=== PATIENT | female | born 1950 | race Two or more races ===

== ENCOUNTER 2018-05-01 14:48 | Emergency (ER) | payer OTHER, MEDICAID ==
[~2018-05-01] VITALS: Ht 162.6 cm; Wt 57.6 kg
[2018-05-01 14:50] VITALS: BP 165/92
--- NOTE | 2018-05-01 15:22 | NUR ---
PT TO [facility]
== END 2018-05-01 16:17 | disposition home or self-care (01) ==
LOC: ER 14:49
DX: R51 Headache (principal)
CPT/HCPCS: 70450-TC; A4606; Z7610

== ENCOUNTER 2018-10-19 11:03 | Emergency (ER) | payer OTHER, MEDICAID ==
[~2018-10-19] VITALS: Ht 134.6 cm; Wt 55.8 kg
--- NOTE | 2018-10-19 11:12 | NUR ---
BIB SELF W C/O R WRIST AND R SHOULDER PAIN, S/P GLF, "I TRIPPED WHILE WALKING" TO ER BED 11 , HOOKED TO MONITOR, CHANGED TO GOWN, AWAITING MD BYERS
--- NOTE | 2018-10-19 11:17 | NUR ---
DR GAN AT BEDSIDE
--- NOTE | 2018-10-19 12:42 | NUR ---
Patient discharged to home in stable condition. Written and verbal after care instructions given. Patient verbalizes understanding of instruction.
[2018-10-19 12:52] VITALS: BP 164/84
== END 2018-10-19 12:53 | disposition home or self-care (01) ==
LOC: ER 11:07
DX: S52.611A Displaced fracture of right ulna styloid process, initial encounter for closed fracture (principal); S52.571A Other intraarticular fracture of lower end of right radius, initial encounter for closed fracture; W18.39XA Other fall on same level, initial encounter; Y93.89 Activity, other specified; Y92.89 Other specified places as the place of occurrence of the external cause; Y99.8 Other external cause status
CPT/HCPCS: 73030-TC; 73110

== ENCOUNTER 2021-07-28 15:37 | Emergency (ER) | payer OTHER ==
[~2021-07-28] VITALS: Ht 137.2 cm; Wt 56.7 kg
--- NOTE | 2021-07-28 15:37 | NUR ---
PT BIB SELF C/O HEADACHE X 3 DAY, TAKING OTC PAIN MEDS W/ NO RELIEF. PT IS AAOX4, NOT IN RESPIRATORY DISTRESS, HOOKED TO NURSE EXTERN, KEPT RESTED AND COMFORTABLE. WILL CONTINUE TO MONITOR.
--- NOTE | 2021-07-28 16:19 | NUR ---
PT SEEN AND EXAMINED BY .
[2021-07-28] MEDS ORDERED: ACETAMINOPHEN 325 MG TABLET PO ONE (16:30)
[2021-07-28] MEDS ORDERED: IV NS 0.9% 1,000 ML BAG IV ONE (16:30)
[2021-07-28] MEDS ORDERED: KETOROLAC TROMETHAMINE INJ 30 MG/ML VIAL IV ONE (16:30)
[2021-07-28] MEDS ORDERED: diphenhydrAMINE HCL 50 MG/ML VIAL IV ONE (16:30)
[2021-07-28] MEDS ORDERED: METOCLOPRAMIDE HCL 10 MG/2 ML VIAL IV ONE (16:30)
[2021-07-28] MEDS ORDERED: diphenhydrAMINE HCL 50 MG/ML VIAL ONE (16:36)
[2021-07-28] MEDS ORDERED: KETOROLAC TROMETHAMINE 15 MG/ML VIAL ONE (16:37)
[2021-07-28] MEDS ORDERED: ACETAMINOPHEN ES 500 MG TABLET ONE (16:37)
[2021-07-28] MEDS ORDERED: METOCLOPRAMIDE HCL 10 MG/2 ML VIAL ONE (16:37)
[2021-07-28] MEDS ORDERED: CLONIDINE HCL 0.1 MG TABLET ONE (16:49)
[2021-07-28] MEDS ORDERED: CLONIDINE HCL 0.1 MG TABLET PO ONE (17:00)
[2021-07-28] MEDS ORDERED: AMLODIPINE BESYLATE 5 MG TABLET PO ONE (17:00)
[2021-07-28] MEDS ORDERED: AMLO2.5T4 PO (17:07)
--- NOTE | 2021-07-28 17:11 | NUR ---
Patient discharged to home in stable condition. Written and verbal after care instructions given. Patient verbalizes understanding of instruction.
[2021-07-28 17:12] VITALS: BP 145/77
== END 2021-07-28 17:12 | disposition home or self-care (01) ==
LOC: ER 15:37
DX: M54.81 Occipital neuralgia (principal); R51.9 Headache, unspecified; I10 Essential (primary) hypertension; E78.00 Pure hypercholesterolemia, unspecified; Z79.899 Other long term (current) drug therapy
CPT/HCPCS: J1200; J1885; J2765; J7030

== ENCOUNTER 2022-04-09 16:50 | Emergency (ER) | payer OTHER ==
[~2022-04-09] VITALS: Ht 152.4 cm; Wt 54.4 kg
[~2022-04-09 16:50] MED LIST: AMLO2.5T4 PO
[2022-04-09 17:11] VITALS: BP 153/76
[2022-04-09] MEDS ORDERED: KETOROLAC TROMETHAMINE INJ 30 MG/ML VIAL IM ONE (17:30)
[2022-04-09] MEDS ORDERED: KETOROLAC TROMETHAMINE INJ 30 MG/ML VIAL ONE (17:49)
[2022-04-09] MEDS ORDERED: IBUP-1957 PO (18:16)
== END 2022-04-09 18:26 | disposition home or self-care (01) ==
LOC: ER 17:09
DX: M25.561 Pain in right knee (principal); E78.00 Pure hypercholesterolemia, unspecified; Z79.899 Other long term (current) drug therapy
CPT/HCPCS: 99283; 96372; 73564; J1885

== ENCOUNTER 2022-05-28 20:39 | Emergency (ER) | payer OTHER ==
[~2022-05-28] VITALS: Ht 152.4 cm; Wt 54.4 kg
[~2022-05-28 20:39] MED LIST changes: +IBUP-1957 PO
--- NOTE | 2022-05-28 22:11 | NUR ---
BIBS FOR C/O ABD PAIN AND DIARRHEA X TODAY. PT AWAKE AND ALERT X4 BREATHING EVEN AND UNLABORED.. DENIES N/V OR ABD PAIN. CHANGED INTO GOWN AND PLACED ON MONITOR AND V/S WNL.
[2022-05-28] MEDS ORDERED: DIPHENOXYLATE HCL/ATROP SULF 1 UDTAB TABLET ONE (22:19)
[2022-05-28] MEDS ORDERED: DICYCLOMINE HCL INJ 20 MG/2 ML AMPUL IM ONE ×2 (22:19→22:30)
[2022-05-28] MEDS ORDERED: ONDANSETRON HCL/PF 4 MG/2 ML VIAL ONE (22:19)
[2022-05-28] MEDS ORDERED: ONDANSETRON HCL/PF 4 MG/2 ML VIAL IVP ONE (22:30)
[2022-05-28] MEDS ORDERED: DIPHENOXYLATE HCL/ATROP SULF 1 UDTAB TABLET PO ONE (22:30)
[2022-05-28] MEDS ORDERED: IV NS 0.9% 1,000 ML BAG IV ONE (22:30)
--- NOTE | 2022-05-28 22:30 | NUR ---
20G ESTABLISHED AT [facility]. BLOOD DRAWN AND SENT TO LAB.
--- NOTE | 2022-05-28 22:31 | NUR ---
PT UNABLE TO PROVIDE URINE AT THIS TIME
[2022-05-28 23:17] LABS: BASOPHILS # (AUTO) 0.1 K/uL (0.0-0.2); BASOPHILS % (AUTO) 0.9 % (0.0-2.0); EOSINOPHILS % (AUTO) 2.6 % (0.0-6.0); HEMATOCRIT 37 % (33-45); HEMOGLOBIN 12.4 g/dL (11.5-14.8); LYMPHOCYTES # (AUTO) 1.7 K/uL (0.8-4.8); LYMPHOCYTES % (AUTO) 24.8 % (20.0-44.0); MEAN CORPUSCULAR HGB CONC 34 g/dl (31.0-36.0); MEAN CORPUSCULAR VOLUME 85 fL (82-100); MONOCYTES # (AUTO) 0.5 K/uL (0.1-1.30); MONOCYTES % (AUTO) 7.4 % (2.0-12.0); NEUTROPHILS # (AUTO) 4.4 K/uL (1.8-8.9); NEUTROPHILS % (AUTO) 64.3 % (43.0-81.0); PLATELET COUNT (AUTO) 250 K/uL (150-450); RED BLOOD CELL COUNT(AUTO) 4.37 MIL/uL (4.0-5.2); WHITE BLOOD COUNT (AUTO) 6.9 K/uL (4.3-11.0)
[2022-05-28 23:31] LABS: CALCIUM, SERUM 9.2 mg/dL (8.5-10.1); CARBON DIOXIDE 29 mmol/L (21-32); CHLORIDE 104 mmol/L (98-107); CREATININE 0.9 mg/dL (0.6-1.3); GLUCOSE 101 mg/dL (74-106); POTASSIUM 3.6 mmol/L (3.5-5.1); SODIUM SERUM 140 mmol/L (136-145); UREA NITROGEN, BLOOD 26 mg/dL (7-18)
[2022-05-28 23:37] LABS: ALANINE AMINOTRANSFERASE 31 U/L (12-78); ALBUMIN 3.9 g/dL (3.4-5.0); ALKALINE PHOSPHATASE 90 U/L (46-116); ASPARTATE AMINOTRANSFERASE 19 U/L (15-37); BILIRUBIN,DIRECT 0.2 mg/dL (0.0-0.2); BILIRUBIN,TOTAL 0.7 mg/dL (0.2-1.0); LIPASE 116 U/L (73-393); TOTAL PROTEIN, SERUM 7.7 g/dL (6.4-8.2)
--- NOTE | 2022-05-29 00:12 | NUR ---
Patient discharged to home in stable condition. Written and verbal after care instructions given. Patient verbalizes understanding of instruction.IV removed. Catheter intact and site benign. Pressure and 4x4 applied to site. No bleeding noted.
[2022-05-29 00:58] VITALS: BP 158/84
== END 2022-05-29 00:12 | disposition home or self-care (01) ==
LOC: ER 20:45
DX: R19.7 Diarrhea, unspecified (principal); E78.00 Pure hypercholesterolemia, unspecified; Z79.899 Other long term (current) drug therapy
CPT/HCPCS: 99284; 74176; 96374; 96361; 85025; 80048; 83690; 80076; 36415; 85730; J2405; J7030; J0500